=== PATIENT | male | born 1955 | race Caucasian/White ===

== ENCOUNTER → 2016-11-08 | Outpatient (CLI) | payer OTHER ==
[~2016-11-08] MED LIST: MELO-195 PO; OMEP40CA36 PO
--- NOTE | 2016-11-08 14:29 | Diagnostic Imaging Report ---
PA and lateral chest at 11:05 a.m. INDICATION: Shortness of breath. FINDINGS: The heart size is within normal limits and stable when compared to 05/09/2012. The lungs are clear. There is no sign of failure, pneumonia, or pleural effusion to suggest an acute abnormality. The mediastinum is not widened. The osseous structures are intact. IMPRESSION: There is no evidence for an acute cardiopulmonary abnormality. Dictated by: Dictated on workstation # [id number]
== END ==
LOC: RAD 10:43
PROVIDERS: ATTEND Nurse Practitioner
DX: R05 Cough (principal)
CPT/HCPCS: 71020

== ENCOUNTER → 2018-08-29 | Outpatient (CLI) | payer OTHER ==
--- NOTE | 2018-08-29 18:23 | Diagnostic Imaging Report ---
INDICATION: Left-sided pain with radiation to left hip noted for approximately one month. No known injury. TECHNIQUE: AP, Lateral and Spot imaging of the lumbar spine. CORRELATION STUDY: None. FINDINGS: Alignment is relatively anatomic. Slight irregularity of the anterior superior L4 endplates likely nonacute. Minimal endplate lipping particularly at the L5 level. Intervertebral disc space mild narrowing at the L3-L4 and L5-S1 levels. No acute bony abnormality. Definitive reactive endplate osteophyte formation to result in encroachment of foramina or spinal canal does not appear to be suggested. Mild aortic vascular calcification. SI joints appear unremarkable. IMPRESSION: Mild degenerative changes to the lumbar spine. No suggestion of acute bony abnormality. Dictated by: Dictated on workstation # [id number]
== END ==
LOC: RAD 13:36
PROVIDERS: ATTEND Family Medicine
DX: M47.816 Spondylosis without myelopathy or radiculopathy, lumbar region (principal)
CPT/HCPCS: 72100

== ENCOUNTER 2019-11-02 09:14 | Emergency (ER) | payer MEDICARE, OTHER ==
[~2019-11-02] VITALS: Ht 177 cm; Wt 90.9 kg
[2019-11-02] MEDS ORDERED: PRAV20TA3 (09:39)
--- NOTE | 2019-11-02 10:33 | ED General ---
General Chief Complaint: Cough/Cold/Flu Symptoms Stated Complaint: FLU LIKE SYMPTOMS Nursing Triage Note: COMPLAINS OF BEING SWEATY, HEADACHE, AND WEAK X3 DAYS. Nursing Sepsis Screen: No Definite Risk Source of Information: Patient, Family Exam Limitations: No Limitations History of Present Illness Date Seen by Provider: Nov 02, 2019 Time Seen by Provider: 09:18 Initial Comments This 63-year-old gentleman presents to the emergency room with complaints of headache, congestion, cold sweats, shortness of breath, and general feeling of illness for several days. Allergies and Home Medications Allergies Coded Allergies: Sulfa(Sulfonamide Antibiotics) (Unverified Allergy, 05/09/12) Patient Home Medication List Home Medication List Reviewed: Yes Review of Systems Review of Systems Constitutional: see HPI EENTM: see HPI Respiratory: no symptoms reported Cardiovascular: no symptoms reported Gastrointestinal: no symptoms reported Genitourinary: no symptoms reported Musculoskeletal: no symptoms reported Skin: no symptoms reported Psychiatric/Neurological: See HPI Hematologic/Lymphatic: No Symptoms Reported Past Nakxwod-Uvfuuw-Vnlcdm Hx Past Med/Social Hx: Reviewed and Corrections made Patient Social History Recent Foreign Travel: No Contact w/Someone Who Travel: No Recent Infectious Disease Expo: No Recent Hopitalizations: No Immunizations Up To Date Date of Influenza Vaccine: Aug 09, 2011 Past Medical History Surgeries: Yes (APPENDECTOMY 1977, HEART CATH 2009) Appendectomy Respiratory: No Cardiac: Yes High Cholesterol Neurological: No Reproductive Disorders: No Genitourinary: No Gastrointestinal: Yes Gastroesophageal Reflux Musculoskeletal: No Endocrine: No HEENT: No Cancer: No Psychosocial: No Integumentary: No Blood Disorders: No Physical Exam Vital Signs Vital Signs - First Documented 11/02/19 09:25 Temp 36.4 Pulse 84 Resp 16 B/P (MAP) 183/99 (127) Pulse Ox 98 O2 Delivery Room Air Capillary Refill : Less Than 3 Seconds Height, Weight, BMI Height: '" Weight: lbs. oz. kg; 29.00 BMI Method:Stated General Appearance: WD/WN HEENT: PERRL/EOMI, TMs Normal, Normal ENT Inspection, Pharynx Normal Neck: Normal Inspection Respiratory: Lungs Clear, Normal Breath Sounds, No Accessory Muscle Use Cardiovascular: Regular Rate, Rhythm, No Edema, No Murmur Gastrointestinal: Normal Bowel Sounds, Non Tender, Soft Extremity: Normal Inspection, No Pedal Edema Neurologic/Psychiatric: Alert, Oriented x3, No Motor/Sensory Deficits, Normal Mood/Affect, coal digger II-XII Norm as Tested Skin: Normal Color, Warm/Dry Progress/Results/Core Measures Suspected Sepsis Recent Fever Within 48 Hours: Yes Infection Criteria Present: Suspected New Infection New/Unexplained Altered Menta: No Sepsis Screen: No Definite Risk SIRS Temperature: Pulse: 84 Respiratory Rate: 16 Blood Pressure 183 /99 Mean: 127 Results/Orders Micro Results Microbiology 11/02/19 Influenza Types A,B Antigen (BETH) - Final, Complete My Orders Orders - PATT DIAZ MD Influenza A And B Antigens (11/02/19 09:18) Vital Signs/I&O Capillary Refill : Less Than 3 Seconds Blood Pressure Mean: 127 Progress Note : Progress Note Influenza screen was positive. Patient is too far into the illness for Tamiflu to be beneficial. Supportive care was recommended. Departure Impression Primary Impression: Influenza B Disposition: 01 HOME, SELF-CARE Condition: Stable Departure-Patient Inst. Decision time for Depature: 10:15 Referrals: ÁNGEL FLOOD DO (PCP/Family) Primary Care Physician Patient Instructions: Flu, Adult (DC) Add. Discharge Instructions: Drink plenty of clear liquids. For fever, chills, and aches you may take ibuprofen up to 600 mg every 6 hours and Tylenol (acetaminophen) up to 1000 mg every 6 hours as needed. Return to care if you have worsening symptoms despite treatment. Get plenty of rest and avoid exposing other people to your illness until you're free of fever and chills for at least 24 hours without treatment. All discharge instructions reviewed with patient and/or family. Voiced understanding. PATT DIAZ MD Nov 02, 2019 10:33
[2019-11-02 10:45] VITALS: BP 183/99
== END 2019-11-02 10:45 | disposition home or self-care (01) ==
LOC: EDUNIT# 09:14 → ER 09:15
DX: J10.1 Influenza due to other identified influenza virus with other respiratory manifestations (principal); E78.00 Pure hypercholesterolemia, unspecified; K21.9 Gastro-esophageal reflux disease without esophagitis; Z88.2 Allergy status to sulfonamides; Z90.49 Acquired absence of other specified parts of digestive tract; Z95.9 Presence of cardiac and vascular implant and graft, unspecified
CPT/HCPCS: 87804

== ENCOUNTER → 2020-10-22 | Outpatient (CLI) | payer MEDICARE, OTHER ==
[~2020-10-22] MED LIST changes: +PRAV20TA3
--- NOTE | 2020-10-22 09:12 | Diagnostic Imaging Report ---
INDICATION: Cough. History of Covid. COMPARISON: 11/08/2016 FINDINGS: Frontal and lateral radiographic views of the chest were obtained and show interval development of scattered patchy infiltrate appearing opacities, left greater than right. There is no large effusion or pneumothorax. Cardiac silhouette and pulmonary vasculature are within normal limits. Osseous structures show no gross acute abnormalities. IMPRESSION: 1. Mild scattered patchy infiltrate opacities, left greater than right. Dictated by: Dictated on workstation # [id number]
== END ==
LOC: RAD 08:16
PROVIDERS: ATTEND Family Medicine
DX: R05 Cough (principal); R07.89 Other chest pain; R91.8 Other nonspecific abnormal finding of lung field; Z86.16 Personal history of COVID-19
CPT/HCPCS: 71046

== ENCOUNTER → 2020-11-11 | Outpatient (CLI) | payer MEDICARE, OTHER ==
[~2020-11-11] MED LIST changes: +CATHETER FLUSH 10 ML SYR IV PRN; +HOLD METFORMIN - RECEIVED CONTRAST 20 ML VIAL IV SCH; +IOHEXOL 350 MG/ML 100 ML (OMNIPAQUE 350) VIAL IV ONE; +NS 100 ML (IVPB) BAG IV ONE
[2020-11-11 15:13] LABS: BUN/CREATININE RATIO 16; CREATININE SERUM 1.17 MG/DL (0.60-1.30); GFR ESTIMATED > 60
--- NOTE | 2020-11-11 15:48 | Diagnostic Imaging Report ---
PROCEDURE: CT angiography of the chest with contrast. TECHNIQUE: Multiple contiguous axial images were obtained through the chest after uneventful bolus administration of intravenous contrast. 3D reconstructed CTA MIP acquisitions were also performed. Auto Exposure Controls were utilized during the CT exam to meet ALARA standards for radiation dose reduction. INDICATION: Chest tightness and shortness of air as well as cough. COMPARISON: No prior studies are available for comparison. FINDINGS: Evaluation of the pulmonary arterial system is without evidence of thromboembolism. No filling defects are seen within central, lobar, or segmental branches. Thoracic aorta is of normal caliber. No dissection is seen. No pericardial or pleural fluid is identified. Parenchymal evaluation does show some patchy airspace infiltrates in the bilateral upper lobes as well as bilateral lower lobes. The upper abdomen is unremarkable. IMPRESSION: 1. No evidence of pulmonary embolism or thoracic aortic dissection. 2. Patchy bilateral pulmonary infiltrates, most suggestive of pneumonia. Dictated by: Dictated on workstation # [id number]
== END ==
LOC: RAD 14:40
PROVIDERS: ATTEND Family Medicine
DX: R91.8 Other nonspecific abnormal finding of lung field (principal); R05 Cough; R06.00 Dyspnea, unspecified; R07.89 Other chest pain
CPT/HCPCS: 36415; 71275; 82565; 84520

== ENCOUNTER 2021-09-10 18:10 | Emergency (ER) | payer MEDICARE, OTHER ==
[~2021-09-10] VITALS: Ht 178 cm; Wt 93.0 kg
[~2021-09-10 18:10] MED LIST changes: -CATHETER FLUSH 10 ML SYR IV PRN; -HOLD METFORMIN - RECEIVED CONTRAST 20 ML VIAL IV SCH; -IOHEXOL 350 MG/ML 100 ML (OMNIPAQUE 350) VIAL IV ONE; -NS 100 ML (IVPB) BAG IV ONE
--- NOTE | 2021-09-10 18:42 | ED Syncope ---
General Chief Complaint: Dizziness/Syncope Stated Complaint: PASSING OUT Source of Information: Patient Exam Limitations: No Limitations History of Present Illness Date Seen by Provider: Sep 10, 2021 Time Seen by Provider: 18:40 Initial Comments To ER by private vehicle with reports of syncope x2 over the course of the past week. The first time he was sitting in his chair. The second time [place]. Does not believe that he hit his head. Denies any headache or vision troubles. He states that he just feels lightheaded and then collapses. He feels a little weak currently. He denies any preceding palpitations. Denies any chest pain or shortness of breath. Denies any activity intolerance. Timing/Prior Episodes: Recent History, Single Episode Today Symptoms Prior to Episode: None Precipitating Factors: None Loss of Consciousness: Brief (Seconds) Current Symptoms: Back to Normal Allergies and Home Medications Allergies Coded Allergies: Sulfa (Sulfonamide Antibiotics) (Unverified Allergy, Unknown, 10/22/20) Patient Home Medication List Home Medication List Reviewed: Yes Pravastatin Sodium (Pravastatin Sodium) 20 Mg Tablet, (Reported) Entered as Reported by: CESAR HUNTER on 11/02/19 0939 Review of Systems Constitutional: see HPI EENTM: see HPI Respiratory: no symptoms reported Cardiovascular: see HPI; No chest pain, No Hx of Intervention, No palpitations; syncope Genitourinary: no symptoms reported Musculoskeletal: no symptoms reported Skin: no symptoms reported Psychiatric/Neurological: No Symptoms Reported Past Arqgtvt-Trmsaf-Rlfdsc Hx Past Medical History Surgeries: Yes (APPENDECTOMY 1977, HEART CATH 2009) Appendectomy Respiratory: No Cardiac: Yes High Cholesterol Neurological: No Reproductive Disorders: No Genitourinary: No Gastrointestinal: Yes Gastroesophageal Reflux Musculoskeletal: No Endocrine: No HEENT: No Cancer: No Psychosocial: No Integumentary: No Blood Disorders: No Physical Exam Vital Signs Vital Signs - First Documented 09/10/21 18:23 Temp 36.3 Pulse 89 Resp 20 B/P (MAP) 191/98 (129) Pulse Ox 98 O2 Delivery Room Air Capillary Refill : Height, Weight, BMI Height: '" Weight: lbs. oz. kg; 29.00 BMI Method:Stated General Appearance: No Apparent Distress, WD/WN, Other (Alert and oriented GCS 15 hypertensive at 190/90.) Neck: Full Range of Motion, Non Tender Cardiovascular: Regular Rate, Rhythm, Normal Peripheral Pulses Respiratory: Lungs Clear, Normal Breath Sounds, No Accessory Muscle Use, No Respiratory Distress Gastrointestinal: Normal Bowel Sounds, Non Tender, Soft Extremities: Normal Capillary Refill, Normal Inspection Neurologic/Psychiatric: Alert, Oriented x3, No Motor/Sensory Deficits Cranial Nerves: Normal Hearing, Normal Speech, PERRL Motor/Sensory: No Motor Deficit, No Sensory Deficit Skin: Normal Color, Warm/Dry Progress/Results/Core Measures Results/Orders Lab Results Laboratory Tests Test 09/10/21 18:35 Range/Units White Blood Count 7.2 4.3-11.0 10^3/uL Red Blood Count 4.68 4.30-5.52 10^6/uL Hemoglobin 14.2 13.3-17.7 g/dL Hematocrit 43 40-54 % Mean Corpuscular Volume 92 80-99 fL Mean Corpuscular Hemoglobin 30 25-34 pg Mean Corpuscular Hemoglobin Concent 33 32-36 g/dL Red Cell Distribution Width 12.3 10.0-14.5 % Platelet Count 160 130-400 10^3/uL Mean Platelet Volume 11.6 9.0-12.2 fL Immature Granulocyte % (Auto) 0 % Neutrophils (%) (Auto) 51 42-75 % Lymphocytes (%) (Auto) 36 12-44 % Monocytes (%) (Auto) 8 0-12 % Eosinophils (%) (Auto) 4 0-10 % Basophils (%) (Auto) 1 0-10 % Neutrophils # (Auto) 3.7 1.8-7.8 10^3/uL Lymphocytes # (Auto) 2.6 1.0-4.0 10^3/uL Monocytes # (Auto) 0.6 0.0-1.0 10^3/uL Eosinophils # (Auto) 0.3 0.0-0.3 10^3/uL Basophils # (Auto) 0.0 0.0-0.1 10^3/uL Immature Granulocyte # (Auto) 0.0 0.0-0.1 10^3/uL Prothrombin Time 13.7 12.2-14.7 SEC INR Comment 1.0 0.8-1.4 Activated Partial Thromboplast Time 29 24-35 SEC Sodium Level 141 135-145 MMOL/L Potassium Level 4.0 3.6-5.0 MMOL/L Chloride Level 104 98-107 MMOL/L Carbon Dioxide Level 24 21-32 MMOL/L Anion Gap 13 5-14 MMOL/L Blood Urea Nitrogen 24 H 7-18 MG/DL Creatinine 1.19 0.60-1.30 MG/DL Estimat Glomerular Filtration Rate 61 BUN/Creatinine Ratio 20 Glucose Level 99 70-105 MG/DL Calcium Level 8.9 8.5-10.1 MG/DL Corrected Calcium 8.8 8.5-10.1 MG/DL Magnesium Level 2.1 1.6-2.4 MG/DL Total Bilirubin 0.4 0.1-1.0 MG/DL Aspartate Amino Transf (AST/SGOT) 21 5-34 U/L Alanine Aminotransferase (ALT/SGPT) 19 0-55 U/L Alkaline Phosphatase 59 40-136 U/L Myoglobin 52.0 10.0-92.0 NG/ML Troponin I < 0.028 <0.028 NG/ML B-Type Natriuretic Peptide 39.0 <100.0 PG/ML Total Protein 7.2 6.4-8.2 GM/DL Albumin 4.1 3.2-4.5 GM/DL Serum Alcohol < 10 <10 MG/DL My Orders Orders - SHASHA TRINH APRN Cbc With Automated Diff (09/10/21 18:13) Magnesium (09/10/21 18:13) Chest 1 View, Ap/Pa Only (09/10/21 18:13) Ekg Tracing (09/10/21 18:13) Comprehensive Metabolic Panel (09/10/21 18:13) Myoglobin Serum (09/10/21 18:13) Protime With Inr (09/10/21 18:13) Partial Thromboplastin Time (09/10/21 18:13) O2 (09/10/21 18:13) Monitor-Rhythm Ecg Trace Only (09/10/21 18:13) Lipid Panel (09/11/21 06:00) Ed Iv/Invasive Line Start (09/10/21 18:13) BNP (09/10/21 18:13) Troponin I (09/10/21 18:13) Alcohol (09/10/21 18:13) Ct Head Wo (09/10/21 19:19) Orthostatic Vital Signs (Adult (09/10/21 19:55) Vital Signs/I&O 09/10/21 09/10/21 18:23 19:50 Temp 36.3 Pulse 89 77 78 82 Resp 20 B/P (MAP) 191/98 (129) 162/88 (112) 161/92 (115) 159/88 (111) Pulse Ox 98 O2 Delivery Room Air Departure Communication (Admissions) Spoke with Dr. Hsieh from hospitalist service, no indication for admission at this time. Will check orthostatic vital signs and then discharged home with return precautions. Impression Primary Impression: Syncope Disposition: 01 HOME, SELF-CARE Condition: Stable Departure-Patient Inst. Decision time for Depature: 20:02 Referrals: ÁNGEL GOTTI DO (PCP/Family) Primary Care Physician Patient Instructions: Syncope (Fainting) (DC) Add. Discharge Instructions: 1. Return to ER for any recurrent syncope or other concerns. Follow-up with Dr. Gotti. Call Monday for an appointment. No driving until Monday as I do not want you to risk passing out behind the wheel. All discharge instructions reviewed with patient and/or family. Voiced understanding. Copy Copies To 1: ÁNGEL GOTTI PETER J APRN Sep 10, 2021 18:41
[2021-09-10 18:43] LABS: BASOPHILS % (AUTO) 1 % (0-10); EOSINOPHILS # (AUTO) 0.3 10^3/uL (0.0-0.3); EOSINOPHILS % (AUTO) 4 % (0-10); HEMATOCRIT 43 % (40-54); HEMOGLOBIN 14.2 g/dL (13.3-17.7); LYMPHOCYTES # (AUTO) 2.6 10^3/uL (1.0-4.0); LYMPHOCYTES % (AUTO) 36 % (12-44); MEAN CORPUSCULAR HEMOGLOBIN 30 pg (25-34); MEAN CORPUSCULAR HGB CONC 33 g/dL (32-36); MEAN CORPUSCULAR VOLUME 92 fL (80-99); MEAN PLATELET VOLUME 11.6 fL (9.0-12.2); MONOCYTES # (AUTO) 0.6 10^3/uL (0.0-1.0); MONOCYTES % (AUTO) 8 % (0-12); NEUTROPHILS # (AUTO) 3.7 10^3/uL (1.8-7.8); NEUTROPHILS % (AUTO) 51 % (42-75); PLATELET COUNT 160 10^3/uL (130-400); WHITE BLOOD COUNT 7.2 10^3/uL (4.3-11.0)
[2021-09-10 18:52] LABS: ALBUMIN 4.1 GM/DL (3.2-4.5)
[2021-09-10 18:53] LABS: CALCIUM 8.9 MG/DL (8.5-10.1)
[2021-09-10 18:54] LABS: TOTAL PROTEIN 7.2 GM/DL (6.4-8.2)
[2021-09-10 18:56] LABS: BILIRUBIN,TOTAL 0.4 MG/DL (0.1-1.0); PROTHROMBIN TIME PATIENT 13.7 SEC (12.2-14.7)
[2021-09-10 18:58] LABS: CREATININE SERUM 1.19 MG/DL (0.60-1.30)
[2021-09-10 19:01] LABS: MAGNESIUM 2.1 MG/DL (1.6-2.4)
--- NOTE | 2021-09-10 19:29 | Diagnostic Imaging Report ---
INDICATION: Chest pain. COMPARISON: Study of 10/22/2020. FINDINGS: The lungs are clear. No failure, effusion or pneumothorax. IMPRESSION: Clear chest. Dictated by: Dictated on workstation # [id number]
--- NOTE | 2021-09-10 19:44 | Diagnostic Imaging Report ---
PROCEDURE: CT head without contrast. TECHNIQUE: Multiple contiguous axial images were obtained through the brain without the use of intravenous contrast. Auto Exposure Controls were utilized during the CT exam to meet ALARA standards for radiation dose reduction. INDICATION: Syncope. The ventricles are normal in size, shape and position. There are no masses or hemorrhages. There are no extra-axial fluid collections. IMPRESSION: No acute abnormality seen in the head. Dictated by: Dictated on workstation # [id number]
[2021-09-10 19:50] VITALS: BP_SYST 159; BP_SYST 161; BP_SYST 162; BP_DIAS 88; BP_DIAS 92
[2021-09-10 20:20] VITALS: BP 145/77
== END 2021-09-10 20:20 | disposition home or self-care (01) ==
LOC: EDUNIT# 18:10 → ER 18:12
DX: R55 Syncope and collapse (principal); E78.00 Pure hypercholesterolemia, unspecified; Z79.899 Other long term (current) drug therapy
CPT/HCPCS: 70450; 71045; 80053; 83735; 83874; 83880; 84484; 85025; 85610; 85730; 93005; 93041; 99284; G0480; 36415; 80320

== ENCOUNTER → 2021-09-28 | Outpatient (CLI) | payer MEDICARE, OTHER ==
--- NOTE | 2021-09-28 15:40 | Diagnostic Imaging Report ---
PROCEDURE: US carotid duplex, bilateral. TECHNIQUE: Multiple real-time grayscale images were obtained over the carotid arteries in various projections, bilaterally. Additional spectral analysis and color Doppler duplex images were also obtained. INDICATION: Syncope, dizziness, carotid bruits Examination of the carotid and vertebral arteries shows only mild disease with no significant stenosis or vessel irregularity seen. There is less than 20% stenosis. There is antegrade flow in all vessels. IMPRESSION: Mild disease. No significant abnormality is seen. Parameters based on the consensus panel Royal-Scale and Doppler ultrasound criteria published August 2003, Radiology, Volume 229. DOPPLER (peak systolic velocity M/S Right Left CCA 1.34 1.56 ICA Proximal .79 .61 ICA Mid .77 .75 ICA Distal .80 .75 RATIO .60 .48 ECA 1.18 .86 VERT .47 .57 Dictated by: Dictated on workstation # [id number]
== END ==
LOC: CARD 14:00
PROVIDERS: ATTEND Family Medicine
DX: R55 Syncope and collapse (principal); R09.89 Other specified symptoms and signs involving the circulatory and respiratory systems; R01.1 Cardiac murmur, unspecified
CPT/HCPCS: 93306; 93880